=== PATIENT | male | born 1995 | race Caucasian/White ===

== ENCOUNTER → 2018-01-19 | Outpatient (CLI) | payer OTHER ==
[~2018-01-19] MED LIST: DEPA500T3 PO; PHEN100 PO; PROP10TA6 PO; PROT40TA PO
--- NOTE | 2018-01-19 12:13 | MG ---
cc: Phoenix Sweeney MD, PhD TEST NUMBER: [id number]. TECHNIQUE: This is a 17-channel EEG. DESCRIPTION: The background rhythm reveals a symmetrical alpha rhythm with a frequency of 8 Hz. Amplitude is 20-30 microvolts. There is the expected anterior decrement to the response. Hyperventilation was done with a good effort with no change in the background rhythm. Photic results in a normal driving response. INTERPRETATION: This is a normal EEG. Phoenix Sweeney MD, PhD GRACE/DL , 12:02 PM , 12:12 PM
== END ==
LOC: HEEG 09:21
PROVIDERS: ATTEND Physical Medicine & Rehabilitation
DX: G40.909 Epilepsy, unspecified, not intractable, without status epilepticus (principal)
CPT/HCPCS: 95819